=== PATIENT | female | born 1965 | race Caucasian/White ===

== ENCOUNTER 2017-08-22 16:19 | Emergency (ER) | payer OTHER ==
--- NOTE | 2017-08-22 16:48 | UC ---
UC General HPI - HPI Summary HPI Summary: PT C/O UTI FOR 4 DAYS DESCRIBES BLADDER PRESSURE, FREQUENT URINATION, BURNING AND LEAKING SOME URINE. HX UTI'S WITH SAME PRESENTATION. NO FEVER OR ABDOMINAL PAIN. PT ALSO NOTES HX OF CHRONIC NAUSEA FROM HER LIVER DISEASE. SHE HAS RUN OUT OF HER ZOFRAN AND IS REQUESTING A REFILL UNTIL HER F/U APPT. SHE WOULD ALSO LIKE HER ALBUTEROL NEB SOLUTION REFILLED WELL. SHE LIVED HERE, MOVED oot AND NOW IS BACK. SHE DOES HAVE A F/U APPT NEXT WEEK. - History of Current Complaint Stated Complaint: UTI SYMPTOMS Time Seen by Provider: 08/22/17 16:33 Hx Obtained From: Patient Onset/Duration: Gradual Onset Timing: Constant Associated Signs & Symptoms: Positive: Dysuria, Edema - CHRONIC FROM LIVER DISEASE, Nausea - CHRONIC FROM LIVER DISEASE. Negative: Fever - Allergy/Home Medications Allergies/Adverse Reactions: Allergies Allergy/AdvReac Type Severity Reaction Status Date / Time clindamycin Allergy Vomiting Verified 08/22/17 16:52 erythromycin base Allergy Vomiting Verified 08/22/17 16:52 Macrolide Antibiotics Allergy Unknown Verified 08/22/17 16:52 Reaction Details lobster Allergy Vomiting Uncoded 08/22/17 16:52 Home Medications: Home Medications Albuterol 2.5MG/3ML (0.083%)* [Ventolin 2.5 MG/3 ML NEB.JANE*] 2.5 mg INH Q4H [History Confirmed 08/22/17] Ascorbic Acid TAB* [Vitamin C TAB*] 2,000 mg PO DAILY 08/22/17 [History Confirmed 08/22/17] Cholecalciferol TAB* [Vitamin D TAB*] 1,000 unit PO DAILY 08/22/17 [History Confirmed 08/22/17] Cyanocobalamin TAB* [Vitamin B12 TAB*] 1 tab PO DAILY 08/22/17 [History Confirmed 08/22/17] Ferrous Sulfate TAB* 325 mg PO TID 08/22/17 [History Confirmed 08/22/17] Levothyroxine TAB* [Synthroid TAB*] 100 mcg PO DAILY 08/22/17 [History Confirmed 08/22/17] Milk Thistle 500 mg PO DAILY 08/22/17 [History Confirmed 08/22/17] Nadolol TAB* [Corgard TAB*] 40 mg PO DAILY 08/22/17 [History Confirmed 08/22/17] Potassium 99 mg PO EVERY OTHER DAY 08/22/17 [History Confirmed 08/22/17] Spironolactone TAB* [Aldactone TAB*] 50 mg PO DAILY 08/22/17 [History Confirmed 08/22/17] Vitamin B Complex CAP* [B Complex CAP*] 1 cap PO DAILY 08/22/17 [History Confirmed 08/22/17] PMH/Surg Hx/FS Hx/Imm Hx - Additional Past Medical History Additional PMH: HEP C WITH CIRRHOSIS AND CHRONIC EDEMA, REACTIVE AIRWAYS, UTI'S Endocrine History: Thyroid Disease Other History Of: Hepatitis C - Social History Occupation: Unemployed Lives: With Family Substance Use Type: Marijuana Review of Systems Constitutional: Negative Skin: Negative Eyes: Negative ENT: Negative Respiratory: Negative Cardiovascular: Negative Gastrointestinal: Negative Genitourinary: Dysuria, Frequency, Urgency Motor: Negative Neurovascular: Negative Musculoskeletal: Edema - LEGS, CHRONIC AND UNCHANGED Neurological: Negative Psychological: Negative All Other Systems Reviewed And Are Negative: Yes Physical Exam Triage Information Reviewed: Yes Appearance: Well-Appearing Vital Signs Reviewed: Yes Eyes: Positive: Conjunctiva Clear ENT: Positive: Normal ENT inspection Neck: Positive: Supple Respiratory: Positive: Lungs clear, Normal breath sounds Cardiovascular: Positive: RRR, No Murmur Abdomen Description: Positive: Nontender, Soft. Negative: CVA Tenderness (R), CVA Tenderness (L), Distended, Guarding Bowel Sounds: Positive: Present Musculoskeletal: Positive: ROM Intact, Edema @ - ble'S(CHRONIC) Neurological: Positive: Alert Psychological: Positive: Age Appropriate Behavior Skin Exam: Normal Diagnostics - Laboratory Diagnostic Studies Completed/Ordered: U/A= + PROTEIN, BLOOD, LEUKOCYTES, NITRITES, BILIRUBIN AND UROBILOGEN. CULTURE PENDING. Course/Dx - Differential Dx - Multi-Symptom Provider Diagnoses: UTI, MEDICATION REFILLS Discharge - Discharge Plan Condition: Stable Disposition: HOME Prescriptions: Albuterol 2.5MG/3ML (0.083%)* [Ventolin 2.5 MG/3 ML NEB.JANE*] 2.5 mg INH Q6H PRN #1 box PRN Reason: Wheezing Nitrofurantoin Macrocrystals* [Macrodantin*] 100 mg PO BID #10 cap Ondansetron [Zofran Odt] 4 mg PO Q6HR PRN #15 tab.rapdis PRN Reason: Nausea/Vomiting Patient Education Materials: Urinary Tract Infection in Women (DC), Medicine Refill (ED) Referrals: Nicolle Bynum PA [Physician Lead Loader] - Additional Instructions: FOLLOW UP WITH [facility] SCHEDULED FOR NEXT WEEK
[2017-08-22] MEDS ORDERED: Nitrofurantoin Macrocrystals* 50 MG CAP PO ONE (17:11)
== END 2017-08-22 17:21 | disposition home or self-care (01) ==
LOC: UCCORT 16:19
DX: N39.0 Urinary tract infection, site not specified (principal); Z76.0 Encounter for issue of repeat prescription; Z88.1 Allergy status to other antibiotic agents; Z91.013 Allergy to seafood; J45.909 Unspecified asthma, uncomplicated; E07.9 Disorder of thyroid, unspecified
CPT/HCPCS: 81003; 87077; 87086; 87186; 99202; A9270-GY; G0463

== ENCOUNTER 2018-04-08 13:13 | Emergency (ER) | payer OTHER | END 2018-04-08 14:54 | disposition left against medical advice (07) | LOC: UCCORT 13:13 | DX: Z53.21 Procedure and treatment not carried out due to patient leaving prior to being seen by health care provider (principal) ==

== ENCOUNTER 2019-04-29 08:39 | Emergency (ER) | payer MEDICARE, OTHER ==
[2019-04-29 09:15] VITALS: BP 144/72
--- NOTE | 2019-04-29 09:32 | UC ---
Complaint Female HPI - HPI Summary HPI Summary: 53-year-old female who has had running on urination, frequency over the past 5 days. She denies any fever or chills. No nausea vomiting or diarrhea. - History Of Current Complaint Chief Complaint: UCGU Stated Complaint: URINARY Time Seen by Provider: 04/29/19 09:14 Hx Obtained From: Patient ?: No Onset/Duration: Gradual Onset Timing: Intermittent Severity Initially: Mild Severity Currently: Moderate Pain Intensity: 5 Character: Burning Aggravating Factor(s): Urination Associated Signs And Symptoms: Positive: Negative - Allergies/Home Medications Allergies/Adverse Reactions: Allergies Allergy/AdvReac Type Severity Reaction Status Date / Time clindamycin Allergy Vomiting Verified 04/29/19 09:16 erythromycin base Allergy Vomiting Verified 04/29/19 09:16 Macrolide Antibiotics Allergy Unknown Verified 04/29/19 09:16 Reaction Details lobster Allergy Vomiting Uncoded 04/29/19 09:16 PMH/Surg Hx/FS Hx/Imm Hx Previously Healthy: Yes Endocrine History: Thyroid Disease Cardiovascular History: Hypertension, Other - Known heart murmur Respiratory History: Asthma GI/ History: Other - Patient states she has end-stage liver disease. Other History Of: Hepatitis C - Surgical History Surgical History: Yes Surgery Procedure, Year, and Place: right wrist x4 r/t fx. fertility procedures. [facility] - Family History Known Family History: Positive: Non-Contributory - Social History Lives: With Family Alcohol Use: None Substance Use Type: Marijuana Smoking Status (MU): Never Smoked Tobacco Review of Systems All Other Systems Reviewed And Are Negative: Yes Genitourinary: Positive: Dysuria, Frequency, Urgency Physical Exam Triage Information Reviewed: Yes Appearance: Well-Appearing, No Pain Distress, Well-Nourished Vital Signs: Initial Vital Signs Temp 98.4 F 04/29/19 09:09 Pulse 63 04/29/19 09:09 Resp 16 04/29/19 09:09 BP 144/72 04/29/19 09:09 Pulse Ox 98 04/29/19 09:09 Vital Signs Reviewed: Yes Respiratory: Positive: Lungs clear, Normal breath sounds, No respiratory distress, No accessory muscle use Cardiovascular: Positive: RRR, Pulses Normal, Brisk Capillary Refill, Murmur:Sys :Grade _?_/ - Grade IV/ systolic murmur, heard in Right upper chest, sitting Abdomen Description: Positive: Nontender. Negative: CVA Tenderness (R), CVA Tenderness (L) Bowel Sounds: Positive: Present Musculoskeletal Exam: Normal Neurological: Positive: Alert Psychological Exam: Normal Skin Exam: Normal Complaint Female Dx - Course Course Of Treatment: Urinalysis was positive for urinary tract infection. I'm giving the patient Bactrim DS one tab by mouth twice a day 5-7 days. She states that she is going to moved to [place] where there are specialists because she needs a liver transplant. In the meantime she is here in [place] with family and grandchildren. She is not under the care of a vocational training instructor for her heart murmur however because it's quite loud I did advise her that she should establish care locally with a primary care provider as well as a vocational training instructor. The patient was given the physician referral service brochure. - Differential Dx/Diagnosis Provider Diagnosis: UTI (urinary tract infection) Discharge ED - Sign-Out/Discharge Documenting (check all that apply): Patient Departure All imaging exams completed and their final reports reviewed: No Studies - Discharge Plan Condition: Fair Disposition: HOME Prescriptions: Sulfamethox/Trimethoprim DS* [Bactrim DS 800/160 TAB*] 1 tab PO BID 7 Days #14 tab Patient Education Materials: Urinary Tract Infection in Women (DC) Referrals: No Primary Care Phys,NOPCP [Primary Care Provider] - [facility] [Outside] Additional Instructions: Increase fluids, follow-up with a vocational training instructor as we discussed, establish care with local physician using the physician referral service. [facility] if no improvement in urinary symptoms in 3 or 4 days. Take the Bactrim with food. - Billing Disposition and Condition Condition: FAIR Disposition: Home
== END 2019-04-29 09:50 | disposition home or self-care (01) ==
LOC: UCCORT 08:39
DX: N39.0 Urinary tract infection, site not specified (principal); I10 Essential (primary) hypertension; K72.90 Hepatic failure, unspecified without coma; B19.20 Unspecified viral hepatitis C without hepatic coma; J45.909 Unspecified asthma, uncomplicated; Z88.1 Allergy status to other antibiotic agents; Z91.013 Allergy to seafood
CPT/HCPCS: 81003; 87077; 87086; 87186; 99212; G0463